=== PATIENT | male | born 1940 | race Caucasian/White ===

== ENCOUNTER 2017-07-31 04:01 | Emergency (ER) | payer MEDICARE, OTHER ==
[~2017-07-31] VITALS: Ht 167.6 cm; Wt 80.0 kg
[~2017-07-31 04:01] MED LIST: [UNRECOGNIZED DRUG - REMARK]
[2017-07-31] MEDS ORDERED: ALBUTEROL SULFATE 2.5 MG/3 ML ONE (05:16)
[2017-07-31] MEDS ORDERED: ALBUTEROL SULFATE 2.5 MG/3 ML NPPB ONE (05:30)
[2017-07-31 06:08] VITALS: BP 136/87
== END 2017-07-31 06:09 | disposition home or self-care (01) ==
LOC: ED 06:02
DX: J20.8 Acute bronchitis due to other specified organisms (principal); B97.89 Other viral agents as the cause of diseases classified elsewhere
CPT/HCPCS: 71046; 93005; 94640; 99284; J7512; J7613